=== PATIENT | female | born 1965 | race African-American/Black ===

== ENCOUNTER 2017-06-02 08:52 | Emergency (ER) | payer BC ==
[2017-06-02 09:59] LABS: ADD MAN DIFF? NO
[2017-06-02] MEDS: KETOROLAC 30 MG/ML INJ. IV (09:59)
[2017-06-02 10:02] LABS: BASO # 0.1 x10^3/uL (0.0-0.2); BASO % 1 % (0-3); EOS # 0.1 x10^3/uL (0.0-0.7); EOS % 1 % (0-3); HEMOGLOBIN 12.8 g/dL (12.0-15.5); LYMPH # 2.6 x10^3/uL (1.0-4.8); LYMPH % 30 % (24-48); MEAN CORPUSCULAR HEMOGLOBIN 29 pg (25-35); MEAN CORPUSCULAR HGB CONC 33 g/dL (31-37); MEAN CORPUSCULAR VOLUME 87 fL (79-100); MONO # 0.4 x10^3/uL (0.0-1.1); MONO % 5 % (0-9); NEUT # 5.7 x10^3uL (1.8-7.7); NEUT % 64 % (31-73); PLATELET COUNT 309 x10^3/uL (140-400); RED BLOOD COUNT 4.49 x10^6/uL (3.50-5.40); RED CELL DISTRIBUTION WIDTH 15.3 % (11.5-14.5)
[2017-06-02 10:08] LABS: ANION GAP 12 (6-14); BLOOD UREA NITROGEN 15 mg/dL (7-20); BUN/CREATININE RATIO 21 (6-20); CALCIUM 9.2 mg/dL (8.5-10.1); CARBON DIOXIDE 26 mmol/L (21-32); CHLORIDE 103 mmol/L (98-107); CREATININE 0.7 mg/dL (0.6-1.0); GFR 106.3; GLUCOSE 99 mg/dL (70-99); SODIUM 141 mmol/L (136-145)
[2017-06-02 10:09] LABS: POTASSIUM 4.4 mmol/L (3.5-5.1)
[2017-06-02 10:13] LABS: ALBUMIN 3.8 g/dL (3.4-5.0); ALK PHOS 56 U/L (46-116); ALT (SGPT) 21 U/L (14-59); AST (SGOT) 20 U/L (15-37); LIPASE 166 U/L (73-393); TOTAL BILIRUBIN 0.4 mg/dL (0.2-1.0); TOTAL PROTEIN 7.6 g/dL (6.4-8.2)
[2017-06-02] MEDS: IOHEXOL 300 MG/ML 100ML VIAL. IV (10:27)
[2017-06-02] MEDS ORDERED: CONTRAST GIVEN MC (10:30)
[2017-06-02 10:42] LABS: BILIRUBIN,URINE NEGATIVE (NEG); CLARITY,URINE CLEAR; COLOR,URINE YELLOW; GLUCOSE,URINE NEGATIVE (NEG); NITRITE,URINE NEGATIVE (NEG); PH,URINE 5.5; PROTEIN,URINE NEGATIVE (NEG-TRACE)
[2017-06-02 10:50] LABS: BACTERIA,URINE 0 /HPF (0-FEW); RBC,URINE 0 /HPF (0-2); SQUAMOUS EPITHELIAL CELL,UR OCC /LPF; WBC,URINE OCC /HPF (0-4)
== END 2017-06-02 12:23 | disposition home or self-care (01) ==
LOC: ER 08:52
DX: K64.4 Residual hemorrhoidal skin tags (principal); M19.90 Unspecified osteoarthritis, unspecified site; E78.00 Pure hypercholesterolemia, unspecified; F17.200 Nicotine dependence, unspecified, uncomplicated
CPT/HCPCS: 36415; 74177; 80053; 81001; 83690; 85025; 96374; 99285-25; J1885; Q9967

== ENCOUNTER 2017-06-02 21:57 | Emergency (ER) | payer BC ==
[2017-06-02 22:22] LABS: ADD MAN DIFF? NO
[2017-06-02 22:24] LABS: BASO % 0 % (0-3); EOS # 0.2 x10^3/uL (0.0-0.7); EOS % 1 % (0-3); HEMATOCRIT 38.4 % (36.0-47.0); HEMOGLOBIN 12.9 g/dL (12.0-15.5); LYMPH # 3.1 x10^3/uL (1.0-4.8); LYMPH % 29 % (24-48); MEAN CORPUSCULAR HEMOGLOBIN 29 pg (25-35); MEAN CORPUSCULAR HGB CONC 34 g/dL (31-37); MEAN CORPUSCULAR VOLUME 87 fL (79-100); MONO # 0.6 x10^3/uL (0.0-1.1); MONO % 6 % (0-9); NEUT # 6.7 x10^3uL (1.8-7.7); NEUT % 64 % (31-73); PLATELET COUNT 257 x10^3/uL (140-400); RED BLOOD COUNT 4.44 x10^6/uL (3.50-5.40); RED CELL DISTRIBUTION WIDTH 15.1 % (11.5-14.5); WHITE BLOOD COUNT 10.6 x10^3/uL (4.0-11.0)
[2017-06-02 22:32] LABS: ANION GAP 12 (6-14); BLOOD UREA NITROGEN 16 mg/dL (7-20); BUN/CREATININE RATIO 18 (6-20); CALCIUM 9.3 mg/dL (8.5-10.1); CARBON DIOXIDE 28 mmol/L (21-32); CHLORIDE 105 mmol/L (98-107); CREATININE 0.9 mg/dL (0.6-1.0); GFR 79.6; GLUCOSE 112 mg/dL (70-99); POTASSIUM 4.1 mmol/L (3.5-5.1); SODIUM 145 mmol/L (136-145)
[2017-06-02 22:39] LABS: ALBUMIN 3.9 g/dL (3.4-5.0); ALBUMIN/GLOBULIN RATIO 1.1 (1.0-1.7); ALK PHOS 65 U/L (46-116); ALT (SGPT) 19 U/L (14-59); AST (SGOT) 11 U/L (15-37); TOTAL BILIRUBIN 0.3 mg/dL (0.2-1.0); TOTAL PROTEIN 7.4 g/dL (6.4-8.2)
[2017-06-02 22:39] LABS: TROPONINI < 0.017 ng/mL (0.000-0.055)
[2017-06-02] MEDS: ASPIRIN CHEWABLE 81 MG TABLET. PO (22:58)
[2017-06-02] MEDS: KETOROLAC 30 MG/ML INJ. IV (23:11)
== END 2017-06-02 23:24 | disposition home or self-care (01) ==
LOC: ER 21:57
DX: R07.89 Other chest pain (principal); F41.9 Anxiety disorder, unspecified; M19.90 Unspecified osteoarthritis, unspecified site; E78.00 Pure hypercholesterolemia, unspecified; F17.210 Nicotine dependence, cigarettes, uncomplicated
CPT/HCPCS: 36415; 71045; 80053; 84484; 85025; 93005; 96374; 99285-25; J1885

== ENCOUNTER → 2017-06-18 | Outpatient (CLI) | payer BC ==
[2017-06-18] MEDS: GADOBUTROL 7.5 MMOL/7.5 ML VIAL IV (09:11)
== END | disposition home or self-care (01) ==
LOC: MRI 14:29
DX: K76.89 Other specified diseases of liver (principal)
CPT/HCPCS: 74183; A9585

== ENCOUNTER 2018-01-13 02:42 | Emergency (ER) | payer BC ==
[~2018-01-13] VITALS: Ht 172.7 cm; Wt 73.9 kg
[~2018-01-13 02:42] MED LIST: ALPR0.5T PO
[2018-01-13 02:45] VITALS: BP 129/69
[2018-01-13] MEDS ORDERED: DEXAMETHASONE 4 MG TABLET PO ONE (03:30)
[2018-01-13] MEDS ORDERED: KETOROLAC 30 MG/ML VIAL. IM ONE (03:30)
[2018-01-13] MEDS ORDERED: NAPR-514 PO (03:33)
[2018-01-13] MEDS ORDERED: ORPH100T PO (03:33)
[2018-01-13] MEDS ORDERED: PRED20TA PO (03:34)
--- NOTE | 2018-01-13 03:34 | PHYS DOC ---
Past Medical History Past Medical History: Anxiety, Arthritis, High Cholesterol Past Surgical History: , Other Additional Past Surgical Histo: Abdominal surgery Alcohol Use: None Drug Use: None Adult General Chief Complaint Chief Complaint: UPPER EXTREMITY PAIN HPI HPI Patient is a 52 year old [f__sex] who presents with [] Review of Systems Review of Systems Constitutional: Denies fever or chills [] Eyes: Denies change in visual acuity, redness, or eye pain [] HENT: Denies nasal congestion or sore throat [] Respiratory: Denies cough or shortness of breath [] Cardiovascular: No additional information not addressed in HPI [] GI: Denies abdominal pain, nausea, vomiting, bloody stools or diarrhea [] : Denies dysuria or hematuria [] Musculoskeletal: Denies back pain or joint pain [] Integument: Denies rash or skin lesions [] Neurologic: Denies headache, focal weakness or sensory changes [] Endocrine: Denies polyuria or polydipsia [] All other systems were reviewed and found to be within normal limits, except as documented in this note. Current Medications Current Medications Current Medications Medications (Trade) Dose Ordered Sig/Hardeep Start Time Stop Time Status Last Admin Dose Admin Dexamethasone (Decadron) 10 mg 1X ONCE 01/13/18 03:30 01/13/18 03:31 DC 01/13/18 03:20 10 MG Ketorolac Tromethamine (Toradol 30mg Vial) 30 mg 1X ONCE 01/13/18 03:30 01/13/18 03:31 DC 01/13/18 03:19 30 MG Allergies Allergies Allergies Coded Allergies Type Severity Reaction Last Updated Verified No Known Drug Allergies 06/11/14 No Physical Exam Physical Exam Constitutional: Well developed, well nourished, no acute distress, non-toxic appearance. [] HENT: Normocephalic, atraumatic, bilateral external ears normal, oropharynx moist, no oral exudates, nose normal. [] Eyes: PERRLA, EOMI, conjunctiva normal, no discharge. [] Neck: Normal range of motion, no tenderness, supple, no stridor. [] Cardiovascular:Heart rate regular rhythm, no murmur [] Lungs & Thorax: Bilateral breath sounds clear to auscultation [] Abdomen: Bowel sounds normal, soft, no tenderness, no masses, no pulsatile masses. [] Skin: Warm, dry, no erythema, no rash. [] Back: No tenderness, no CVA tenderness. [] Extremities: No tenderness, no cyanosis, no clubbing, ROM intact, no edema. [] Neurologic: Alert and oriented X 3, normal motor function, normal sensory function, no focal deficits noted. [] Psychologic: Affect normal, judgement normal, mood normal. [] Current Patient Data Vital Signs Vital Signs Date Time Temp Pulse Resp B/P (MAP) Pulse Ox O2 Delivery O2 Flow Rate FiO2 01/13/18 02:45 98.0 73 20 129/69 (89) 98 Room Air 98.0 EKG EKG [] Radiology/Procedures Radiology/Procedures [] Course & Med Decision Making Course & Med Decision Making Pertinent Labs and Imaging studies reviewed. (See chart for details) [] Dragon Disclaimer Dragon Disclaimer This electronic medical record was generated, in whole or in part, using a voice recognition dictation system. Departure Departure Impression: Primary Impression: Arthralgia Disposition: HOME, SELF-CARE Condition: STABLE Referrals: DAKOTAH BERNAL MD (PCP) EFFIE MEADE MD Patient Instructions: Arthralgia, [id number], Joint Sprain Scripts Prednisone (PREDNISONE) 20 Mg Tablet 2 TAB PO DAILY, #8 TAB Take next dose on Sunday01/14/18. Prov: SOFIE ANDRADE DO 01/13/18 Orphenadrine Citrate (ORPHENADRINE CITRATE) 100 Mg Tablet.er 100 MG PO BID PRN for MUSCLE PAIN, #14 Prov: SOFIE ANDRADE DO 01/13/18 Naproxen (NAPROXEN) 500 Mg Tablet 1 TAB PO BID PRN for PAIN, #20 TAB 0 Refills Prov: SOFIE ANDRADE DO 01/13/18 Problem Qualifiers Primary Impression: Arthralgia Joint pain location: elbow Laterality: right Qualified Codes: M25.521 - Pain in right elbow SOFIE ANDRADE DO Jan 13, 2018 03:34
--- NOTE | 2018-01-13 06:40 | RAD ---
3 views right elbow AP lateral oblique HISTORY: Pain There is lifting the anterior fat pad and posterior displacement of the posterior fat pad. The visualized osseous structures appear normal. IMPRESSION: Small hemarthrosis sonographic fractures are seen. Findings suggest occult injury such as a nondisplaced radial head fracture. End impression Three views right shoulder History: pain Internally and externally rotated AP of shoulder obtained, as well as "Y" view. The glenohumeral relationship is normal. There is deformity of the humeral neck with posterior angulation. A fracture line is not seen. Impression: Right humeral neck deformity appears be secondary to an old injury. No definite acute findings. end impression Electronically signed by: Vidal Harris III, MD (01/13/2018 6:36 AM) [id number]
== END 2018-01-13 03:50 | disposition home or self-care (01) ==
LOC: ER 02:42
DX: M25.521 Pain in right elbow (principal); F41.9 Anxiety disorder, unspecified; M19.90 Unspecified osteoarthritis, unspecified site; E78.00 Pure hypercholesterolemia, unspecified; Z98.890 Other specified postprocedural states
CPT/HCPCS: 73030; 73080; 96372; 99284; J1885; J8540